=== PATIENT | male | born 1985 | race Caucasian/White ===

== ENCOUNTER 2021-07-26 06:23 | Emergency (ER) | payer OTHER ==
[2021-07-26 06:40] VITALS: BP 110/72; PULSE 86; TEMP 98.4; BMI 25.1
[2021-07-26] MEDS ORDERED: SODIUM CHLORIDE 0.9% 500 ML INFUS.BAG IV ONE (07:29)
[2021-07-26] MEDS ORDERED: KETOROLAC TROMETHAMINE 30 MG/1 ML VIAL IVPUSH ONE (07:29)
[2021-07-26] MEDS ORDERED: diazePAM 5 MG TABLET PO ONE (07:29)
[2021-07-26 08:40] LABS: BASO % 0.4 % (0-2.0); EOS % 1.4 % (0-4.5); HEMATOCRIT 40.6 % (35.4-49); HEMOGLOBIN 13.6 GM/dL (11.7-16.9); LYMPH % 21.7 % (8-40); MCH 29.9 pg (25.7-33.7); MCHC 33.5 g/dl (32.0-35.9); MEAN CELL VOLUME 89.3 fl (80-96); MEAN PLT VOLUME 7.5 fl (7.5-11.1); NEUT % 63.5 % (42.8-82.8); PLATELET COUNT 201 10^3/uL (134-434); RBC 4.54 M/mm3 (4.00-5.60); RDW 14.6 % (11.9-15.9); WHITE BLOOD COUNT 6.5 K/mm3 (4.0-10.0)
[2021-07-26 09:10] LABS: CALCIUM 8.9 mg/dL (8.5-10.1)
[2021-07-26 09:11] LABS: ALBUMIN 3.7 g/dl (3.4-5.0)
[2021-07-26 09:14] LABS: CREATININE 0.9 mg/dL (0.55-1.3)
[2021-07-26 09:15] LABS: BILIRUBIN,TOTAL 0.3 mg/dL (0.2-1); TOT PROT 7.4 g/dl (6.4-8.2)
[2021-07-26] MEDS ORDERED: DOXYCYCLINE HYCLATE 100 MG CAPSULE PO ONE (09:43)
[2021-07-26 10:53] LABS: ERYTHROCYTE SEDIMENTATION RATE 23 mm/hr (0-10)
== END 2021-07-26 10:16 | disposition home or self-care (01) ==
LOC: JERFT 06:23 → JER 06:23 → JERFT 10:16
PROC: 3E033GC Introduction of Other Therapeutic Substance into Peripheral Vein, Percutaneous Approach (ICD-10-PCS; principal; 2021-07-26)
DX: R51.9 Headache, unspecified (principal); M54.2 Cervicalgia; R21 Rash and other nonspecific skin eruption
CPT/HCPCS: 36415; 80053; 85025; 85651; 86140; 99284-25